=== PATIENT | female | born 1935 | race Caucasian/White ===

== ENCOUNTER 2017-05-01 10:10 | Emergency (ER) | payer OTHER ==
[~2017-05-01] VITALS: Ht 162.6 cm; Wt 44.9 kg
--- NOTE | 2017-05-01 10:49 | NUR ---
Dr Baeza spoke with Dr Callejas via telephone regarding plan of care.
--- NOTE | 2017-05-01 10:53 | NUR ---
Per Dr Baeza pt to be d/c back to [facility], [facility] called for transport , eta 45 mins.
--- NOTE | 2017-05-01 11:19 | NUR ---
Written and verbal after care instructions given. Patient verbalizes understanding of instructions. Stressed follow up with foreman/project manager as recommended by Dr Baeza. Pt waiting in room 3 for transport back to facility.
--- NOTE | 2017-05-01 11:23 | NUR ---
Called [facility] and gave SBAR report to Eli via telephone.
--- NOTE | 2017-05-01 12:05 | NUR ---
Pt d/c to [facility] via [facility] ambulance.
== END 2017-05-01 12:06 | disposition home or self-care (01) ==
LOC: ER 10:10
DX: R21 Rash and other nonspecific skin eruption (principal); F03.90 Unspecified dementia, unspecified severity, without behavioral disturbance, psychotic disturbance, mood disturbance, and anxiety
CPT/HCPCS: A4663

== ENCOUNTER 2017-05-09 15:38 | Emergency (ER) | payer OTHER, MEDICAID ==
[~2017-05-09] VITALS: Ht 162.6 cm; Wt 45.4 kg
[2017-05-09] MEDS ORDERED: BISA10SU61 RC (16:13)
[2017-05-09] MEDS ORDERED: SODIUM CHLORIDE PO (16:13)
[2017-05-09] MEDS ORDERED: LOVA20TA2 PO (16:13)
[2017-05-09] MEDS ORDERED: CALC-811 PO (16:13)
[2017-05-09] MEDS ORDERED: FAMO-132 PO (16:13)
[2017-05-09] MEDS ORDERED: DOCU-106 PO (16:13)
[2017-05-09] MEDS ORDERED: LACT-239 PO (16:13)
[2017-05-09] MEDS ORDERED: ATEN25TA PO (16:13)
[2017-05-09] MEDS ORDERED: MAGN400O6 PO (16:13)
[2017-05-09] MEDS ORDERED: DONE10TA44 PO (16:13)
[2017-05-09] MEDS ORDERED: AZAT50TA PO (16:13)
[2017-05-09] MEDS ORDERED: LEVO200T9 PO (16:13)
[2017-05-09] MEDS ORDERED: ASPI81TA31 PO (16:13)
[2017-05-09] MEDS ORDERED: NA P133E RC (16:13)
[2017-05-09] MEDS ORDERED: MULT1TAB73 PO (16:13)
[2017-05-09] MEDS ORDERED: ACET-2154 PO (16:13)
[2017-05-09] MEDS ORDERED: IBUP-1953 PO (16:13)
[2017-05-09 16:36] LABS: CARBON DIOXIDE 26 mmol/L (21-32); CHLORIDE 102 mmol/L (98-107); CREATININE 0.5 mg/dL (0.6-1.3); GLUCOSE 106 mg/dL (74-106); POTASSIUM 4.3 mmol/L (3.5-5.1); UREA NITROGEN, BLOOD 11 mg/dL (7-18)
[2017-05-09 16:41] LABS: ALANINE AMINOTRANSFERASE 13 U/L (14-59); ALKALINE PHOSPHATASE 117 U/L (50-136); ASPARTATE AMINOTRANSFERASE 20 U/L (15-37); BILIRUBIN,DIRECT 0.3 mg/dL (0.0-0.2); BILIRUBIN,TOTAL 0.9 mg/dL (0.2-1.0); TOTAL PROTEIN, SERUM 6.2 g/dL (6.4-8.2)
[2017-05-09 17:00] LABS: BASOPHILS % (AUTO) 0.5 % (0.0-2.0); EOSINOPHILS # (AUTO) 0.2 K/uL (0.0-0.7); EOSINOPHILS % (AUTO) 6.3 % (0.0-7.0); HEMATOCRIT 33.8 % (37-47); HEMOGLOBIN 11.3 G/DL (12.0-16.0); LYMPHOCYTES # (AUTO) 0.8 K/UL (0.8-4.8); MEAN CORPUSCULAR HEMOGLOBIN 34.4 UUG (27.0-31.0); MEAN CORPUSCULAR HGB CONC 33 g/dL (32.0-37.0); MEAN CORPUSCULAR VOLUME 103.4 FL (81.0-99.0); MONOCYTES # (AUTO) 0.2 K/UL (0.1-1.30); MONOCYTES % (AUTO) 7.1 % (0.0-11.0); NEUTROPHILS # (AUTO) 1.6 K/UL (1.8-8.9); NEUTROPHILS % (AUTO) 59.1 % (38.5-71.5); PLATELET COUNT (AUTO) 208 K/UL (150-450); RED BLOOD CELL COUNT(AUTO) 3.27 MIL/UL (4.2-5.4); WHITE BLOOD COUNT (AUTO) 2.8 K/UL (4.0-11.2)
[2017-05-09 17:57] LABS: BAND % (MANUAL) 2 % (0-10); BASOPHILS % (MANUAL) 0 % (0-2); EOSINOPHILS % (MANUAL) 1 % (0-8); LYMPHOCYTES % (MANUAL) 22 % (20-40); MONOCYTES % (MANUAL) 6 % (2-10); NEUTROPHILS % (MANUAL) 69 % (42-75)
--- NOTE | 2017-05-09 18:54 | NUR ---
PT WAS EVALUATED BY DR RODRIGUEZ. PT IS GOING TO BE D/C TO HOME. [facility] WAS CALLED ) TO TRANSFER PT BACK TO HER RESIDENCE. BOB IS 90 MINUTES. PT IS EATING DINNER. NO S/S OF DISTRESS AT THIS TIME. REPORT GIVEN TO SYNTHETIC FILAMENT SPINNER RN.
--- NOTE | 2017-05-09 19:24 | NUR ---
Received report from GEETHA Ziegler. Assumed care of pt at this time. Pt pending discharge, awaiting BLS transport back to facility
--- NOTE | 2017-05-09 20:08 | NUR ---
Ambulance at bedside to transport pt back to facility. Per previous RN, report to facility was already given.
[2017-05-09 20:09] VITALS: BP 148/83
== END 2017-05-09 20:10 | disposition home or self-care (01) ==
LOC: ER 15:41
DX: L30.9 Dermatitis, unspecified (principal); D61.818 Other pancytopenia; F03.90 Unspecified dementia, unspecified severity, without behavioral disturbance, psychotic disturbance, mood disturbance, and anxiety; E03.9 Hypothyroidism, unspecified; M06.9 Rheumatoid arthritis, unspecified; Z79.82 Long term (current) use of aspirin
CPT/HCPCS: 70030-TC; 71010; 83605; 85025; 85730; 87040; 93005; A4663

== ENCOUNTER 2018-10-01 11:34 | Emergency (ER) | payer OTHER, MEDICAID ==
[~2018-10-01] VITALS: Ht 165.1 cm; Wt 45.4 kg
[~2018-10-01 11:34] MED LIST: ACET-2154 PO; ASPI81TA31 PO; ATEN25TA PO; AZAT50TA PO; BISA10SU61 RC; CALC-811 PO; DOCU-106 PO; DONE10TA44 PO; FAMO-132 PO; IBUP-1953 PO; LACT-239 PO; LEVO200T9 PO; LOVA20TA2 PO; MAGN400O6 PO; MULT1TAB73 PO; NA P133E RC; SODIUM CHLORIDE PO
--- NOTE | 2018-10-01 11:58 | NUR ---
Dr. Sanchez at bedside for MSE
[2018-10-01] MEDS ORDERED: ACET-1443 PO (12:06)
[2018-10-01] MEDS ORDERED: MELOXICAM 7.5 MG TABLET PO (12:06)
--- NOTE | 2018-10-01 13:45 | NUR ---
[facility] paged
--- NOTE | 2018-10-01 14:08 | NUR ---
Paged [facility] for discharge back to [facility] # [phone]
[2018-10-01 15:09] VITALS: BP 131/85
--- NOTE | 2018-10-01 15:10 | NUR ---
Patient discharged to home in stable conditon. Written and verbal after care instructions given to ambulance sales representative health insurance and nurse from [facility].
== END 2018-10-01 15:11 | disposition home or self-care (01) ==
LOC: ER 11:37
DX: Z04.3 Encounter for examination and observation following other accident (principal); R41.0 Disorientation, unspecified; M54.2 Cervicalgia; I67.2 Cerebral atherosclerosis; I10 Essential (primary) hypertension; Z79.82 Long term (current) use of aspirin; Z79.1 Long term (current) use of non-steroidal anti-inflammatories (NSAID); Z79.899 Other long term (current) drug therapy; W19.XXXA Unspecified fall, initial encounter; Y93.89 Activity, other specified; Y92.89 Other specified places as the place of occurrence of the external cause; Y99.8 Other external cause status
CPT/HCPCS: 70450; 72125; A4663

== ENCOUNTER 2018-11-09 12:52 | Emergency (ER) | payer OTHER, MEDICAID ==
[~2018-11-09] VITALS: Ht 165.1 cm; Wt 63.5 kg
[~2018-11-09 12:52] MED LIST changes: +ACET-1443 PO; +MELOXICAM 7.5 MG TABLET PO
[2018-11-09] MEDS ORDERED: MELO-105 PO (13:15)
[2018-11-09] MEDS ORDERED: BISA10SU61 RC (13:15)
[2018-11-09] MEDS ORDERED: ACET-1443 PO (13:15)
[2018-11-09] MEDS ORDERED: MAGN400O6 PO (13:15)
--- NOTE | 2018-11-09 14:01 | NUR ---
Per pt may be d/c back to [facility] called for transport.
--- NOTE | 2018-11-09 14:09 | NUR ---
Alejandra madrigal 30 mins, trip # [phone].
--- NOTE | 2018-11-09 14:31 | NUR ---
Pt d/c back to assisted living facility via private ambulance.
== END 2018-11-09 14:32 | disposition home or self-care (01) ==
LOC: ER 12:52
DX: R07.81 Pleurodynia (principal); M25.521 Pain in right elbow; I10 Essential (primary) hypertension; Z79.82 Long term (current) use of aspirin; Z79.1 Long term (current) use of non-steroidal anti-inflammatories (NSAID); Z79.899 Other long term (current) drug therapy; W06.XXXA Fall from bed, initial encounter; Y93.89 Activity, other specified; Y92.89 Other specified places as the place of occurrence of the external cause; Y99.8 Other external cause status
CPT/HCPCS: 71101; 73080; A4663

== ENCOUNTER 2019-03-31 15:13 | Emergency (ER) | payer OTHER, MEDICAID ==
[~2019-03-31] VITALS: Ht 165.1 cm; Wt 63.5 kg
[~2019-03-31 15:13] MED LIST changes: -ACET-2154 PO; -AZAT50TA PO; -LACT-239 PO; +MELO-105 PO; -NA P133E RC
[2019-03-31 15:51] LABS: BASOPHILS # (AUTO) 0.1 K/uL (0.0-8.0); BASOPHILS % (AUTO) 0.6 % (0.0-2.0); EOSINOPHILS # (AUTO) 0.2 K/uL (0.0-0.7); EOSINOPHILS % (AUTO) 1.9 % (0.0-7.0); HEMATOCRIT 40.6 % (31.2-41.9); HEMOGLOBIN 13.2 g/dL (10.9-14.3); LYMPHOCYTES # (AUTO) 0.5 K/uL (20.0-40.0); LYMPHOCYTES % (AUTO) 4.4 % (20.5-51.5); MEAN CORPUSCULAR HEMOGLOBIN 24.1 uug (24.7-32.8); MEAN CORPUSCULAR HGB CONC 32 g/dL (32.3-35.6); MEAN CORPUSCULAR VOLUME 74.3 fL (75.5-95.3); MONOCYTES % (AUTO) 8.6 % (0.0-11.0); NEUTROPHILS # (AUTO) 9.7 K/uL (1.8-8.9); NEUTROPHILS % (AUTO) 84.5 % (38.5-71.5); PLATELET COUNT (AUTO) 350 K/uL (179-408); RED BLOOD CELL COUNT(AUTO) 5.47 MIL/uL (3.63-4.92); WHITE BLOOD COUNT (AUTO) 11.5 K/uL (3.8-11.8)
[2019-03-31 16:19] LABS: ALANINE AMINOTRANSFERASE 15 U/L (14-59); ALKALINE PHOSPHATASE 109 U/L (50-136); ASPARTATE AMINOTRANSFERASE 19 U/L (15-37); BILIRUBIN,DIRECT 0.1 mg/dL (0.0-0.2); BILIRUBIN,TOTAL 0.4 mg/dL (0.2-1.0); TOTAL PROTEIN, SERUM 6.9 g/dL (6.4-8.2)
--- NOTE | 2019-03-31 16:20 | NUR ---
Cara-anal care done. The rectal mass has scant bleeding which spontaneously stops.
[2019-03-31 16:21] LABS: *BILIRUBIN,URIN NEGATIVE (NEGATIVE); *BLOOD, URINE 1+ (NEGATIVE); *KETONES,URINE TRACE (NEGATIVE); *UROBILINOGEN,URINE 0.2 E.U./dl (NORMAL); LEUKOCYTE ESTERASE ,URINE 1+ (NEGATIVE); NITRITE, URINE NEGATIVE (NEGATIVE); PH,URINE 5.5 (5.0-8.0); UGLUCOSE NEGATIVE (NEGATIVE)
[2019-03-31 16:27] LABS: *CLARITY,URINE CLOUDY (CLEAR); *COLOR,URINE YELLOW (YELLOW)
[2019-03-31 16:28] LABS: CARBON DIOXIDE 29 mmol/L (21-32); CHLORIDE 106 mmol/L (98-107); CREATININE 0.9 mg/dL (0.6-1.3); GLUCOSE 162 mg/dL (74-106); POTASSIUM 3.9 mmol/L (3.5-5.1); UREA NITROGEN, BLOOD 18 mg/dL (7-18)
--- NOTE | 2019-03-31 16:33 | NUR ---
Patient is resting comfortably on gurney with eyes closed, pending results and disposition
[2019-03-31 16:34] LABS: BACTERIA,URINE MODERATE /HPF (NONE SEEN); RBC,URINE 0-3 /HPF (0-3); SQUAMOUS EPITHELIAL CELL,UR FEW /HPF (NONE SEEN); WBC,URINE 20-50 /HPF (0-3)
[2019-03-31 16:37] LABS: LYMPHOCYTES % (MANUAL) 6 % (20-40); MONOCYTES % (MANUAL) 3 % (2-10); NEUTROPHILS % (MANUAL) 91 % (42-75)
[2019-03-31] MEDS ORDERED: IV NORMAL SALINE 500 ML BAG IV ONE (16:45)
[2019-03-31] MEDS ORDERED: CEFTRIAXONE 2 G in IV DEXTROSE 5% 100 ML IV ONE (17:15)
--- NOTE | 2019-03-31 17:50 | NUR ---
Per ER registration staff Mihai, "The patient will be transferred to another hospital per Brittney of [facility] insurance."- pending transfer information@this time.
[2019-03-31] MEDS ORDERED: IV NS 1000 ML 1,000 ML IV ONE (18:35)
--- NOTE | 2019-03-31 18:43 | NUR ---
ROCEPHIN 2GM IVPB INFUSION WAS COMPLETED AT [phone].
--- NOTE | 2019-03-31 19:02 | NUR ---
Patient is still waiting trasnfer information, endorsed to GEETHA Malave accordingly.
--- NOTE | 2019-03-31 20:45 | NUR ---
Patient's son Pratik Mendosa consent for transfer to [facility]
--- NOTE | 2019-03-31 20:52 | NUR ---
Gave SBAR report to Butch nurse from [facility] . Patient will be going to room 310A. Accepting MD is DR Peres
--- NOTE | 2019-03-31 21:05 | NUR ---
Gave SBAR to [facility] Unit #[phone]
== END 2019-03-31 21:27 | disposition other institution (70) ==
LOC: ER 15:13
DX: E83.52 Hypercalcemia (principal); E86.0 Dehydration; N39.0 Urinary tract infection, site not specified; R41.82 Altered mental status, unspecified; E03.9 Hypothyroidism, unspecified; Z79.1 Long term (current) use of non-steroidal anti-inflammatories (NSAID); Z79.899 Other long term (current) drug therapy; Z79.82 Long term (current) use of aspirin
CPT/HCPCS: 36415; 70450; 71045; 80048; 80076; 81001; 83605; 84443; 84484; 85025; 87040 ×2; 96365; 99285; J0696; J7060; 70030-TC; A4663; J7030; J7040